=== PATIENT | female | born 1975 | race Native Hawaiian/Other Pacific Islander ===

== ENCOUNTER 2019-08-09 10:13 | Emergency (ER) | payer OTHER, MEDICAID, SELFPAY ==
[2019-08-09 10:15] VITALS: BP 140/77; PULSE 72; RESP 18; TEMP 37; O2SAT 100; BMI 38.9
--- NOTE | 2019-08-09 10:31 | ED_ITS ---
HPI - Chest Pain General Chief Complaint: Chest Pain Stated Complaint: Lower back and abdominal pain, chest pain Time Seen by Provider: 08/09/19 10:24 Source: patient Mode of arrival: Ambulatory Limitations: no limitations History of Present Illness HPI narrative: Patient is a 44-year-old female who presents with a variety of complaints. She states that 4 days ago she started having bilateral low back pain knee radiating down her legs. 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 She has been taking Tylenol without any relief. Last night the pain was quite pad. She also has some lower abdominal pain some dysuria. She denies any fevers nausea or vomiting. She did also have some intermittent chest pain now resolved this morning. She says that has gone away. Related Data Home Medications Medication Instructions Recorded Confirmed No Known Home Medications 08/09/19 08/09/19 Allergies Allergy/AdvReac Type Severity Reaction Status Date / Time No Known Drug Allergies Allergy Verified 08/09/19 10:30 Review of Systems Review of Systems ROS Unobtainable: All systems reviewed & are unremarkable except as noted in HPI and below Constitutional Constitutional: Denies chills, Denies fever(s), Denies lethargy and Denies weakness Cardiovascular Cardiovascular: Reports chest pain, Denies dyspnea and Denies dyspnea on exertion Respiratory Respiratory: Denies cough, Denies dyspnea, Denies dyspnea on exertion and Denies wheezing Gastrointestinal Gastrointestinal: Reports abdominal pain (lower mild), Denies diarrhea, Denies n ausea and Denies vomiting Genitourinary Genitourinary: Denies hematuria, Denies flank pain, Denies urinary incontinence and Denies urinary urgency Musculoskeletal Musculoskeletal: Reports as per HPI, Reports back pain, Denies muscle weakness, Denies numbness and Denies tingling Integumentary/Breasts Skin/Breast: Denies pruritus, Denies erythema, Denies rash and Denies wounds Neurologic Neurologic: Denies confusion, Denies numbness, Denies tingling and Denies weakness Psychiatric Psychiatric: Denies anxiety, Denies confusion, Denies depression, Denies homicidal ideation and Denies suicidal ideation Allergic/Immunologic Allergic/Immunologic: Denies wheezing Patient History Medical History Patient denies significant medical history (Acute) Social History Smoking Status: Current every day smoker Social History Smoking Status: Current every day smoker alcohol intake frequency: 0-2 drinks per day Substance Use Type: does not use Exam Initial Vital Signs Initial Vital Signs: Vital Signs Temperature 98.6 F 08/09/19 10:15 Pulse Rate 72 08/09/19 10:15 Respiratory Rate 18 08/09/19 10:15 Blood Pressure 140/77 08/09/19 10:15 Pulse Oximetry 100 08/09/19 10:15 GENERAL: Well-appearing, well-nourished and in no acute distress. HEENT: Head atraumatic,EOMI, pupils reactive, face symmetric CARDIOVASCULAR: Regular rate and rhythm without murmurs, rubs or gallops. RESPIRATORY: Breath sounds equal bilaterally, no wheezes rales or rhonchi. ABDOMEN: Soft, minimal suprapubic tenderness. Normoactive bowel sounds all 4 quadrants. No guarding or rebound. bACK: No vertebral tenderness lower bilateral lumbar pain. It to lift both legs off bed without reproducing low back pain sensation in lower extremities equal and intact : No CVA tenderness EXTREMITIES: Normal range of motion, no clubbing or edema. Neurovascularly intact NEUROLOGICAL: Alert and oriented x4.Normal gait and speech. Cranial nerves II through XII grossly intact. SKIN: Warm, dry, no laceration, no petechiae, no rashes or lesions. Scores HEART Score Heart Score history: Slightly Suspicious Heart Score EKG: Normal Heart Score Age: 45-64 years old Heart Score risk factors: No known risk factors Heart Score troponin: < or = to normal limit Heart Score Total: 1 Course Orders Ordered: ED Orders 08/09/19 10:34 EKG-12 Lead Stat 08/09/19 10:45 Complete Blood Count AUTO DIFF Stat Comprehensive Metabolic Panel Stat Lipase Stat Troponin & CK Cardiac Panel Stat 08/09/19 11:20 XR chest 1V Stat Discontinued Medications Ketorolac Tromethamine (Toradol) 30 mg IV NOW ONE Stop: 08/09/19 11:21 Last Admin: 08/09/19 11:36 Dose: 30 mg Documented by: SIENNA Vital Signs Vital signs: Vital Signs - 8 hr 08/09/19 10:15 08/09/19 11:30 08/09/19 13:14 Temperature 98.6 F Pulse Rate 72 65 61 Respiratory Rate 18 17 Blood Pressure 140/77 124/70 Blood Pressure [Right Arm] 129/77 Pulse Oximetry 100 98 100 MDM - Chest Pain Lab Data Attestation: I reviewed the patient's lab results. Result diagrams: 08/09/19 10:45 08/09/19 10:45 Labs: Lab Results 08/09/19 08/09/19 Range/Units 10:45 10:45 WBC 7.4 (4.5-11.0) X10^3/uL RBC 5.11 (4.0-5.2) X10^6/uL Hgb 13.3 (12.0-16.0) g/dL Hct 39.9 (36-46) % MCV 78.2 L (80-100) fL MCH 26.1 (26-34) PG MCHC 33.3 (30-36) % RDW 15.8 H (11.6-14.8) % Plt Count 289 (150-400) X10^3/uL Neut % (Auto) 67.6 (50-75) % Lymph % (Auto) 21.7 L (25-40) % [place] % (Auto) 6.0 (3-14) % Eos % (Auto) 3.4 (2-4) % Baso % (Auto) 1.3 (0-2) % Neut # (Auto) 5000 (1310-0344) /uL Lymph # (Auto) 1600 (6117-3553) /uL [place] # (Auto) 400 (0-900) /uL Eos # (Auto) 200 (0-450) /uL Baso # (Auto) 100 (0-100) /uL Sodium 137 (137-145) mmol/L Potassium 4.4 (3.4-5.1) mmol/L Chloride 102 (98-107) mmol/L Carbon Dioxide 25 (22-32) mmol/L BUN 12 (7-17) mg/dL Creatinine 0.70 (0.52-1.04) mg/dL Estimated GFR > 60.0 (>60) mL/min BUN/Creatinine Ratio 17.1 (6-22) Glucose 129 H (70-100) mg/dL Calcium 9.6 (8.4-10.2) mg/dL Total Bilirubin 0.5 (0.2-1.3) mg/dL AST 33 (14-36) IU/L ALT < 6 L (9-52) IU/L Alkaline Phosphatase 51 (38-126) U/L Total Creatine Kinase 73 (30-135) U/L CK-MB (CK-2) TNP CK-MB (CK-2) Rel Index TNP Troponin I < 0.012 (0.01-0.034) ng/mL Total Protein 7.8 (6.3-8.2) g/dL Albumin 4.5 (3.5-5.0) g/dL Globulin 3.3 (1.7-4.1) g/dL Albumin/Globulin Ratio 1.4 (1.0-2.8) Lipase 38 (23-300) U/L Point of Care Testing Test Results Negative Urine Dip Bedside Urine Glucose Negative Bedside Urine Bilirubin - Negative Bedside Urine Ketone - Negative Urine Specific Zachary 1.010 Bedside Urine Occult Blood - Negative Bedside Urine pH 6.0 Bedside Urine Protein - Negative Bedside Urine Urobilinogen - Negative Bedside Urine Nitrite - Negative Bedside Urine Leukocytes - Negative Esterase Imaging Data Chest x-ray: Radiologist's impression: PROCEDURE: XR CHEST 1V INDICATIONS: chest pain TECHNIQUE: One view of the chest was acquired. COMPARISON: None. FINDINGS: Surgical changes and devices: None. Lungs and pleura: Lungs are clear. No pleural effusions or pneumothorax. Mediastinum: Mediastinal contours appear normal. Heart size is normal. Bones and chest wall: No suspicious bony lesions. Overlying soft tissues a ppear unremarkable. IMPRESSION: No acute cardiopulmonary disease process. Dictated by: Catia Bradshaw MD, PhD on 08/09/2019 at 11:02 ECG Data Attestation: I personally reviewed and interpreted this ECG as follows: Prior ECG tracings: not available for review Interpretation: Normal sinus rhythm rate 66 p.r. interval 163 QRS [address] changes no T-wave inversions no prior to compare MDM Narrative Medical decision making narrative: Patient overall is feeling much better after Toradol. She is ambulatory to the restroom without any difficulty she does not have any signs of UTI. EKG and blood work were overall reassuring. Biggest complaint today seems to be back pain. Discharge Plan Departure Patient Disposition: Home Clinical Impression: Back pain Qualifiers: Back pain location: low back pain Chronicity: acute Back pain laterality: bilateral Sciatica presence: without sciatica Qualified Code(s): M54.5 - Low back pain Discharge Date/Time: 08/09/19 13:15 Instructions: DI for Low Back Pain Activity Restrictions/Additional Instructions: *You have been diagnosed with back pain *What to do: A light stretching is encouraged, increase activity as tolerated. *Continue to take medications as directed Ibuprofen 800 mg every 8 hours if needed for pain Tylenol 650 mg every 4-6 hours if needed for pain *Follow up with your primary care provider in 2-3 days *Return to ER if you should have increasing back pain, leg weakness, or any new, worsening or concerning symptoms Prescriptions: No Action No Known Home Medications RF: 0 Referrals: [facility] [Outside] Stand Alone Forms: Work Release Note
--- NOTE | 2019-08-09 11:20 | DI.RAD.S_ITS ---
PROCEDURE: XR CHEST 1V INDICATIONS: chest pain TECHNIQUE: One view of the chest was acquired. COMPARISON: None. FINDINGS: Surgical changes and devices: None. Lungs and pleura: Lungs are clear. No pleural effusions or pneumothorax. Mediastinum: Mediastinal contours appear normal. Heart size is normal. Bones and chest wall: No suspicious bony lesions. Overlying soft tissues appear unremarkable. IMPRESSION: No acute cardiopulmonary disease process. Dictated by: Catia Bradshaw MD, PhD on 08/09/2019 at 11:02 Approved by: Catia Bradshaw MD, PhD on 08/09/2019 at 11:02
[2019-08-09 11:29] LABS: Add Manual Diff / Slide Review NO; Basophils Absolute Auto 100 /uL (0-100); Basophils Percent Auto 1.3 % (0-2); Eosinophils Absolute Auto 200 /uL (0-450); Eosinophils Percent Auto 3.4 % (2-4); Hematocrit 39.9 % (36-46); Hemoglobin 13.3 g/dL (12.0-16.0); Lymphocytes Absolute Auto 1600 /uL (1100-4500); Lymphocytes Percent Auto 21.7 % (25-40); Mean Corpuscular HGB Conc 33.3 % (30-36); Mean Corpuscular Hemoglobin 26.1 PG (26-34); Mean Corpuscular Volume 78.2 fL (80-100); Monocytes Absolute Auto 400 /uL (0-900); Neutrophils Absolute Auto 5000 /uL (1500-7000); Neutrophils Percent Auto 67.6 % (50-75); Platelet Count 289 X10^3/uL (150-400); Red Blood Cell Count 5.11 X10^6/uL (4.0-5.2); Red Cell Distribution Width 15.8 % (11.6-14.8); White Blood Cell Count 7.4 X10^3/uL (4.5-11.0)
[2019-08-09 11:30] VITALS: BP 129/77; PULSE 65; RESP 17; O2SAT 98
[2019-08-09 11:34] LABS: Albumin 4.5 g/dL (3.5-5.0); Albumin Globulin Ratio 1.4 (1.0-2.8); Alkaline Phosphatase 51 U/L (38-126); Aspartate Aminotransferase 33 IU/L (14-36); BUN Creatinine Ratio 17.1 (6-22); Bilirubin Total 0.5 mg/dL (0.2-1.3); Blood Urea Nitrogen 12 mg/dL (7-17); Calcium 9.6 mg/dL (8.4-10.2); Carbon Dioxide 25 mmol/L (22-32); Chloride 102 mmol/L (98-107); Creatine Kinase 73 U/L (30-135); Estimated Glomerular Filt Rate > 60.0 mL/min (>60); Globulin 3.3 g/dL (1.7-4.1); Glucose 129 mg/dL (70-100); Lipase 38 U/L (23-300); Potassium 4.4 mmol/L (3.4-5.1); Sodium 137 mmol/L (137-145); Total Protein 7.8 g/dL (6.3-8.2)
[2019-08-09 11:35] LABS: Alanine Aminotransferase < 6 IU/L (9-52); HEMOLYSIS 60 (0-50)
[2019-08-09] MEDS: KETOROLAC 60 MG/2 ML VIAL 30 MG IV (11:36)
[2019-08-09 11:45] LABS: Troponin I < 0.012 ng/mL (0.01-0.034)
[2019-08-09 13:14] VITALS: BP 124/70; PULSE 61; O2SAT 100
== END 2019-08-09 13:15 | disposition home or self-care (01) ==
PROVIDERS: Emergency Provider Emergency Medicine
DX: M54.9 Dorsalgia, unspecified (principal)
CPT/HCPCS: 36415; 71045; 80053; 81003; 81025; 82550; 83690; 84484; 85025; 93005; 93041; 96374; 99283; 99285; J1885

== ENCOUNTER 2025-03-08 15:51 | Emergency (ER) | payer OTHER, SELFPAY ==
[2025-03-08 15:58] VITALS: PULSE 75; O2SAT 98
[2025-03-08 15:59] VITALS: BP 116/56; PULSE 79; RESP 17; TEMP 36.1; O2SAT 98; BMI 43.7
[2025-03-08 16:00] VITALS: BP 108/59; PULSE 71; RESP 16; O2SAT 95
--- NOTE | 2025-03-08 16:01 | DI.RAD.S_ITS ---
PROCEDURE: XR CHEST 1V INDICATIONS: Chest Pain TECHNIQUE: One view of the chest was acquired. COMPARISON: [facility], CR, XR CHEST 1V, 08/09/2019, 11:33. Merged With [facility], CR, XR CHEST 1 VIEW, 11/01/2024, 8:21. FINDINGS: Surgical changes and devices: None. Lungs and pleura: On this semiupright portable chest examination, no large pneumothorax or large pleural effusions are seen. No focal infiltrates are seen. Low lung volumes are noted. This causes a crowded appearance to the lung markings and limits evaluation. Mediastinum: Mediastinal contours appear normal. Heart size is normal. Bones and chest wall: No suspicious bony lesions. Overlying soft tissues appear unremarkable. IMPRESSION: Limited portable chest examination, without a significant cardiopulmonary abnormality identified. Dictated by: Gennaro Norman M.D. on 03/08/2025 at 15:40 Approved by: Gennaro Norman M.D. on 03/08/2025 at 15:41
--- NOTE | 2025-03-08 16:02 | ED_ITS ---
HPI - General Adult General Chief complaint: Dizziness Stated complaint: numbness, sweaty, DA SILVA, nausea Time Seen by Provider: 03/08/25 16:01 Source: patient, RN notes reviewed and old records reviewed Mode of arrival: Ambulatory Limitations: no limitations History of Present Illness HPI narrative: 50-year-old female history of hypertension, GERD, neuropathy chronic wounds on bilateral feet who presents with complaint of headache that came on fairly abruptly earlier today about 2 hours prior to arrival. Patient states it has improved although still present. She said she was felt sweaty sort of nauseated and felt numb down in both legs. She states no syncope. No fevers or chills. No chest pain, no shortness of breath. She had nausea but no vomiting. Denies any loss of bowel or bladder control. Does note she was had some diarrhea that is been mild last several days. Denies any urinary symptoms. Patient states no weakness numbness or tingling that is new in her extremities at this time. She states she was able to ambulate the entire time.. She states she was sort of felt cold all over. Patient states she does not normally get headaches. She did not take her usual Tylenol today. She did take oral pain medication she was unsure if it is a narcotic or something such as Neurontin but states her daughters told her it makes her kind of weird she thinks that might have caused her symptoms. She states she takes medication for hypertension, omeprazole, cholesterol but no diabetes. She states no aspirin or thinners. She denies any prior surgeries. Denies any drug allergies. Does use tobacco, denies any alcohol or recreational drugs. Does have known wounds on her bilateral feet which are being monitored and she states has been healing well. She follows with Rita Conley for primary care. Related Data Home Medications Medication Instructions Recorded Confirmed No Known Home Medications 08/09/19 08/09/19 Allergies Allergy/AdvReac Type Severity Reaction Status Date / Time No Known Drug Allergies Allergy Verified 03/08/25 15:59 Review of Systems Review of Systems ROS Unobtainable: All systems reviewed & are unremarkable except as noted in HPI and below Patient History Medical History (Updated 03/08/25 @ 17:16 by Elysia Carballo DO) Patient denies significant medical history Social History Smoking Status: Current every day smoker Smoking Status: Current every day smoker alcohol intake frequency: 0-2 drinks per day Exam Narrative Exam Narrative: GEN: well nourished, well appearing female, alert and oriented x 3, patient appears to be in mild distress. No diaphoresis. HEENT: Atraumatic, pupils are equal round reactive to light, extraocular movements are intact, no photophobia, nares are clear, TMs are clear with no fluid, there is no conjunctival pallor. Throat is clear without any exudates, erythema, tonsillar enlargement or uvular deviation, no facial droop. HEART: Regular rate and rhythm without murmur, clicks, rubs. Pulses are equal in upper and lower extremities LUNGS:Lungs clear to auscultation, no wheezes, rales, crackles, chest moves symmetrically ABD:bowel sounds normal, soft, non-tender, no guarding, rebound, rigidity, no masses noted, no hepatosplenomegaly :No CVA tenderness MSCL: Non-tender, no muscle atrophy, muscles strength 5/5 upper and lower extremities, full range of motion, normal gait NEURO:CN 2-12 intact, sensation normal, finger nose finger test normal, heel thomas test normal. SKIN: No rash, erythema, patient has wounds on the plantar side of both her feet, she several wounds ranging from dime to quarter size on her right foot over the ball and mid foot. They are clean dry and intact without any purulent drainage, no erythema or surrounding skin changes. On the left foot on the plantar side she has 2 small wounds anteriorly with a larger wound towards the heel these are also clean dry and intact with some scant serous drainage but no purulent drainage no foul odor no erythema. They are nontender to touch for the patient. Initial Vital Signs Initial Vital Signs: Vital Signs Pulse Rate 75 03/08/25 15:58 Pulse Oximetry 98 03/08/25 15:58 Course Orders Ordered: ED Orders 03/08/25 16:01 XR chest 1V Stat EKG-12 Lead Stat RT Consult Eval and Treat NOW 03/08/25 16:12 Complete Blood Count AUTO DIFF Stat Comprehensive Metabolic Panel Stat Lactate (Lactic Acid) Stat Lipase Stat Magnesium Stat NT-proBNP (BNP-Adult 18+) Stat PTT Partial Thromboplastin Jamel Stat Prothrombin Time INR Stat Troponin & CK Cardiac Panel Stat 03/08/25 16:17 CT angio head and neck Stat CT head/brain wo con Stat Discontinued Medications Acetaminophen (Acetaminophen 325 Mg Tablet) 975 mg PO NOW ONE Stop: 03/08/25 16:18 Last Admin: 03/08/25 16:23 Dose: 975 mg Documented By: BOBBI Aspirin (Aspirin 81 Mg Chew Tab) 324 mg PO NOW ONE Stop: 03/08/25 16:02 Sodium Chloride (Normal Saline 0.9%) 1,000 mls @ 1,000 mls/hr IV BOLUS ONE Stop: 03/08/25 17:16 Last Infusion: 03/08/25 17:33 Dose: Infused Documented By: Infusion: 03/08/25 16:49 Dose: 1,000 mls/hr Documented By: Infusion: 03/08/25 16:38 Dose: 0 mls/hr Documented By: Admin: 03/08/25 16:23 Dose: 1,000 mls/hr Documented By: BOBBI Vital Signs Vital signs: Vital Signs - 8 hr 03/08/25 15:58 03/08/25 15:59 03/08/25 16:00 Temperature 97.0 F L Pulse Rate 75 79 71 Respiratory Rate 17 Blood Pressure 116/56 L Pulse Oximetry 98 98 95 Oxygen Delivery Method Room Air 03/08/25 16:00 03/08/25 16:46 03/08/25 16:47 Temperature Pulse Rate 72 Respiratory Rate 16 Blood Pressure 108/59 L 97/61 Pulse Oximetry 97 Oxygen Delivery Method 03/08/25 16:47 03/08/25 17:00 03/08/25 17:00 Temperature Pulse Rate 72 69 Respiratory Rate 21 15 Blood Pressure 105/65 Pulse Oximetry 98 100 Oxygen Delivery Method Medical Decision Making Lab Data 03/08/25 16:12 03/08/25 16:12 Labs: Lab Results 03/08/25 Range/Units 16:12 WBC 13.3 H (4.5-11.0) X10^3/uL RBC 4.56 (4.0-5.2) X10^6/uL Hgb 13.0 (12.0-16.0) g/dL Hct 38.7 (36-46) % MCV 84.8 (80-100) fL MCH 28.4 (26-34) PG MCHC 33.5 (30-36) % RDW 14.4 (11.6-14.8) % Plt Count 351 (150-400) X10^3/uL Neut % (Auto) 66.3 (50-75) % Lymph % (Auto) 24.5 L (25-40) % [place] % (Auto) 5.4 (3-14) % Eos % (Auto) 3.0 (2-4) % Baso % (Auto) 0.8 (0-2) % Neut # (Auto) 8800 H (5795-8764) /uL Lymph # (Auto) 3200 (2045-6838) /uL [place] # (Auto) 700 (0-900) /uL Eos # (Auto) 400 (0-450) /uL Baso # (Auto) 100 (0-100) /uL PT 11.3 (9.4-12.5) SECONDS INR 1.0 (0.9-1.3) APTT 32 (25.1-36.5) SECONDS Sodium 135 L (137-145) mmol/L Potassium 3.7 (3.4-5.1) mmol/L Chloride 101 (98-107) mmol/L Carbon Dioxide 23 (22-32) mmol/L BUN 19 H (7-17) mg/dL Creatinine 1.21 H (0.52-1.04) mg/dL Estimated GFR 54 L (>60) mL/min BUN/Creatinine Ratio 15.7 (6-22) Glucose 177 H (70-99) mg/dL Lactate 1.8 (0.7-2.1) mmol/L Calcium 9.0 (8.4-10.2) mg/dL Magnesium 1.9 (1.6-2.3) mg/dL Total Bilirubin 0.3 (0.2-1.3) mg/dL AST 22 (14-36) IU/L ALT 25 (<35) IU/L Alkaline Phosphatase 70 (38-126) U/L Total Creatine Kinase 44 (30-135) U/L Troponin I < 0.012 (0.01-0.034) ng/mL NT-Pro-B Natriuret Pep < 20 (<125) pg/mL Total Protein 7.1 (6.3-8.2) g/dL Albumin 4.3 (3.5-5.0) g/dL Globulin 2.8 (1.7-4.1) g/dL Albumin/Globulin Ratio 1.5 (1.0-2.8) Lipase 50 (23-300) U/L Point of Care Testing Glucose POC 166 Point of care testing: Point of Care Testing Glucose POC 166 ECG Data Attestation: I personally reviewed and interpreted this ECG as follows: Prior ECG tracings: available for review Interpretation: Sinus rhythm rate of 69 CO 178 QRS of 94 QTC of [address] elevation depression appreciated. Patient has prior from 08/09/2019 which appears similar. MDM Narrative Medical decision making narrative: EKG shows sinus rhythm Chest x-ray shows no acute change. Head CT shows no acute intracranial hemorrhage, no other acute intracranial pathology. CT head and neck angio shows no significant intracranial arterial abnormality, no darlene aneurysm, no significant abnormalities in the arteries of the neck. Labs white count of 13 hemoglobin of 13 platelets of 351, coags are negative. Chemistry shows sodium 135 BUN 18 creatinine 1.21 glucose of 177, potassium, chloride CO2 were normal range, lactate 1.8 LFTs are negative troponins less than 0.012 with a BNP of less than 20. 50 old nontoxic, well-appearing female female comes in with complaint of headache fairly abrupt onset, states it is significantly improved but felt sweaty nauseated tingling down both legs no acute neurologic changes otherwise her neuro exam here today is normal. She was a bit hypotensive on repeat vitals after arrival. She does take blood pressure medication she notes she did not take her usual Tylenol and did take a pain medication unclear if it was narcotic or not earlier today for chronic leg pain. Point of care glucose was 166. Patient had acetaminophen deferred anything stronger, and fluids. On rechecked patient states she still has a mild headache but continues to feel improved. Reviewed her findings from today she was unsure of her prior creatinine or if this is an elevation or her baseline. She feels comfortable returning home. We will give a copy of her labs to follow up with primary care. Patient Discharge Plan Departure Patient Disposition: Home Clinical Impression: Headache, Elevated serum creatinine Instructions: DI for Headache Activity Restrictions/Additional Instructions: Follow up for recheck, your creatinine today is elevated last labs I have for comparison or from 6 years ago please touch base with your physician make sure this is your normal baseline and does not need to be rechecked. Your creatinine is 1.21 today. You can continue your home medications as prescribed. Please return if you have recurrent severe headaches, sudden vision changes, passing out, vomiting, new numbness tingling or weakness, difficulty with movement, changes to speech or other new or concerning changes. Prescriptions: No Action No Known Home Medications Referrals: Rita Conley ARNP [Primary Care Provider] - Stand Alone Forms: Patient Portal/API/Survey
--- NOTE | 2025-03-08 16:08 | EKG_ITS ---
[address] [address] Test Date: 2025-03-08 Pat Name: Alisa Gipson Department: [facility] Room: Gender: Female Sales Person: LITZY : 1975 Requested By: Order Number: [id number] Reading MD: Sid Wolf MD Measurements Intervals [place] Rate: 69 P: 62 OK: 178 QRS: 51 QRSD: 94 T: 57 QT: 442 QTc: 473 Interpretive Statements Normal sinus rhythm Electronically Signed On 03-09-2025 8:12:57 PDT by Sid Wolf MD
--- NOTE | 2025-03-08 16:17 | DI.CT.S_ITS ---
PROCEDURE: CT HEAD/BRAIN WO CON INDICATIONS: Deal, sudden onset, better now but was bad earlier TECHNIQUE: Noncontrast 4.5 mm thick angled axial sections acquired from the foramen magnum to the vertex, with coronal and sagittal reformats. For radiation dose reduction, the following was used: automated exposure control, adjustment of mA and/or kV according to patient size. COMPARISON: [facility], CR, XR CHEST 1V, 03/08/2025, 16:06. [facility], CT, CT ANGIO HEAD AND NECK, 03/08/2025, 16:31. FINDINGS: Image quality: Diagnostic. CSF spaces: Basal cisterns are patent. No extra-axial fluid collections. Ventricles are normal in size and shape. Brain: No midline shift. No intracranial mass effect or hemorrhage. Kirby-white matter interface is normal. Skull and face: Calvarium and visualized facial bones are intact, without suspicious lesions. Sinuses: Visualized sinuses and mastoids are clear. IMPRESSION: No acute intracranial hemorrhage is seen. No acute intracranial pathology. Dictated by: Gennaro Norman M.D. on 03/08/2025 at 16:08 Approved by: Gennaro Norman M.D. on 03/08/2025 at 16:09
--- NOTE | 2025-03-08 16:17 | DI.CT.S_ITS ---
PROCEDURE: CT ANGIO HEAD AND NECK INDICATIONS: Deal, sudden onset, better now but was bad earlier TECHNIQUE: After the administration of intravenous contrast, 1 mm thick sections acquired from the aortic arch through the [place] of [place]. 3-dimensional fdzvmaz-nvvlmubxl-pqvilaiivo (MIP) and/or volume rendering reformats were acquired of the central intracranial vasculature and neck separately. For radiation dose reduction, the following was used: automated exposure control, adjustment of mA and/or kV according to patient size. COMPARISON: [facility], CR, XR CHEST 1V, 03/08/2025, 16:06. [facility], CT, CT HEAD/BRAIN WO CON, 03/08/2025, 16:31. FINDINGS: Image quality: Limited by bolus timing, with venous contamination. Streak artifact is reduced by metal reconstruction algorithm. BRAIN: CSF spaces: Ventricles are normal in size and shape. Basal cisterns are patent. No extra-axial fluid collections. Brain: No significant abnormality of the brain can be seen. Skull and face: Calvarium and facial bones appear intact, without suspicious lesions. Orbits appear normal. Sinuses: Sinuses and mastoids are clear. HEAD CT ANGIOGRAPHY: Anterior circulation: Intracranial internal carotid arteries are normal in size and flow. The flow within the paired anterior cerebral arteries is normal and symmetric. The flow within the middle cerebral arteries is normal and symmetric. The anterior communicating artery is seen. No aneurysms are seen. Posterior circulation: Visualized portions of the vertebral arteries demonstrate normal caliber, and join to form a normal appearing basilar artery. Flow within the posterior cerebral arteries is normal and symmetric. No aneurysms are seen. NECK CT ANGIOGRAPHY: Carotid system: The great vessels demonstrate a conventional anatomy as they arise from the aortic arch. The origins of the common carotid arteries appear patent. The common carotid arteries demonstrate normal caliber and courses. The bifurcation regions are both widely patent. The internal carotid arteries demonstrate normal calibers and courses. Posterior circulation: The origins of the vertebral arteries both appear widely patent. The more superior extracranial portions of both vertebral arteries also demonstrate normal courses and calibers. They join to form a normal appearing basilar artery. Soft tissues: Visualized neck soft tissues demonstrate no suspicious abnormalities. Bones: No suspicious bony lesions. Visualized cervical spine appears normally aligned. Mild lower cervical spine degenerative change can be seen. IMPRESSION: No significant intracranial arterial abnormality is seen. No darlene aneurysm is identified. No significant abnormality is seen within the arteries of the neck. Any quantitative measurements of stenosis were performed using NASCET criteria. Dictated by: Gennaro Norman M.D. on 03/08/2025 at 16:09 Approved by: Gennaro Norman M.D. on 03/08/2025 at 16:11
[2025-03-08] MEDS: SODIUM CHLORIDE 0.9% 1,000 ML 1000 ML IV (16:23)
[2025-03-08] MEDS: ACETAMINOPHEN 325 MG TABLET 975 MG PO (16:23)
[2025-03-08 16:25] LABS: Add Manual Diff / Slide Review NO; Basophils Absolute Auto 100 /uL (0-100); Basophils Percent Auto 0.8 % (0-2); Eosinophils Absolute Auto 400 /uL (0-450); Hematocrit 38.7 % (36-46); Lymphocytes Absolute Auto 3200 /uL (1100-4500); Lymphocytes Percent Auto 24.5 % (25-40); Mean Corpuscular HGB Conc 33.5 % (30-36); Mean Corpuscular Hemoglobin 28.4 PG (26-34); Mean Corpuscular Volume 84.8 fL (80-100); Monocytes Absolute Auto 700 /uL (0-900); Monocytes Percent Auto 5.4 % (3-14); Neutrophils Absolute Auto 8800 /uL (1500-7000); Neutrophils Percent Auto 66.3 % (50-75); Platelet Count 351 X10^3/uL (150-400); Red Blood Cell Count 4.56 X10^6/uL (4.0-5.2); Red Cell Distribution Width 14.4 % (11.6-14.8); White Blood Cell Count 13.3 X10^3/uL (4.5-11.0)
[2025-03-08 16:30] LABS: Prothrombin Time 11.3 SECONDS (9.4-12.5)
[2025-03-08 16:32] LABS: PTT Partial Thromboplastin Tim 32 SECONDS (25.1-36.5)
[2025-03-08 16:44] LABS: Lactate (Lactic Acid) 1.8 mmol/L (0.7-2.1)
[2025-03-08 16:46] VITALS: PULSE 72; O2SAT 97
[2025-03-08 16:46] LABS: Alanine Aminotransferase 25 IU/L (<35); Albumin 4.3 g/dL (3.5-5.0); Albumin Globulin Ratio 1.5 (1.0-2.8); Alkaline Phosphatase 70 U/L (38-126); Aspartate Aminotransferase 22 IU/L (14-36); BUN Creatinine Ratio 15.7 (6-22); Bilirubin Total 0.3 mg/dL (0.2-1.3); Blood Urea Nitrogen 19 mg/dL (7-17); Carbon Dioxide 23 mmol/L (22-32); Chloride 101 mmol/L (98-107); Creatine Kinase 44 U/L (30-135); Estimated Glomerular Filt Rate 54 mL/min (>60); Globulin 2.8 g/dL (1.7-4.1); Glucose 177 mg/dL (70-99); HEMOLYSIS < 15 (0-50); Lipase 50 U/L (23-300); Magnesium 1.9 mg/dL (1.6-2.3); Potassium 3.7 mmol/L (3.4-5.1); Sodium 135 mmol/L (137-145); Total Protein 7.1 g/dL (6.3-8.2)
[2025-03-08 16:47] VITALS: BP 97/61; PULSE 72; RESP 21; O2SAT 98
[2025-03-08 16:57] LABS: NT-proBNP (BNP-Adult 18+) < 20 pg/mL (<125); Troponin I < 0.012 ng/mL (0.01-0.034)
[2025-03-08 17:00] VITALS: BP 105/65; PULSE 69; RESP 15; O2SAT 100
== END 2025-03-08 17:34 | disposition home or self-care (01) ==
PROVIDERS: Emergency Provider Emergency Medicine; PCP Nurse Practitioner
DX: R51.9 Headache, unspecified (principal); R20.0 Anesthesia of skin; R11.0 Nausea; R79.89 Other specified abnormal findings of blood chemistry
CPT/HCPCS: 70450; 70496; 70498; 71045; 80053; 82550; 82962; 83605; 83690; 83735; 83880; 84484; 85025; 85610; 85730; 93005; 96360; 99284; Q9967

== ENCOUNTER 2025-09-11 15:27 | Emergency (ER) | payer OTHER, SELFPAY ==
[2025-09-11] VITALS (8 sets, daily range): BP systolic 87–141; BP diastolic 52–64; PULSE 77–97; RESP 14–20; TEMP 36.5; O2SAT 94–100; BMI 38.2
--- NOTE | 2025-09-11 15:33 | DI.RAD.S_ITS ---
PROCEDURE: XR CHEST 1V INDICATIONS: Chest Pain TECHNIQUE: One view of the chest was acquired. COMPARISON: [facility], CR, XR CHEST 1 VIEW, 11/01/2024, 8:21. [facility], CR, XR CHEST 1V, 03/08/2025, 16:06. FINDINGS: Surgical changes and devices: None. Lungs and pleura: Lungs are clear. No pleural effusions or pneumothorax. Mediastinum: Mediastinal contours appear normal. Heart size is normal. Bones and chest wall: No suspicious bony lesions. Overlying soft tissues appear unremarkable. IMPRESSION: No acute cardiopulmonary abnormality is seen. Dictated by: Gennaro Norman M.D. on 09/11/2025 at 15:26 Approved by: Gennaro Norman M.D. on 09/11/2025 at 15:27
--- NOTE | 2025-09-11 15:33 | EKG_ITS ---
[address] [address] Test Date: 2025-09-11 Pat Name: Alisa Gipson Department: [facility] Room: Gender: Female [employer]crete [employer]: JOHN : 1975 Requested By: Order Number: [id number] Reading MD: Sid Wolf MD Measurements Intervals [place] Rate: 92 P: 65 CA: 170 QRS: 40 QRSD: 84 T: 59 QT: 372 QTc: 460 Interpretive Statements Normal sinus rhythm Electronically Signed On 09-11-2025 16:34:36 PST by Sid Wolf MD
[2025-09-11] MEDS: ASPIRIN 81 MG CHEW TAB 324 MG PO (15:38)
[2025-09-11 16:21] LABS: Add Manual Diff / Slide Review NO; Hematocrit 38.8 % (36-46); Hemoglobin 13.4 g/dL (12.0-16.0); Lymphocytes Absolute Auto 2800 /uL (1100-4500); Mean Corpuscular HGB Conc 34.4 % (30-36); Mean Corpuscular Hemoglobin 29.2 PG (26-34); Mean Corpuscular Volume 84.9 fL (80-100); Platelet Count 381 X10^3/uL (150-400)
[2025-09-11 16:27] LABS: INR 1.0 (0.9-1.3); Prothrombin Time 11.2 SECONDS (9.4-12.5)
[2025-09-11 16:29] LABS: PTT Partial Thromboplastin Tim 32 SECONDS (25.1-36.5)
[2025-09-11 16:34] LABS: Alanine Aminotransferase 22 IU/L (<35); Albumin 4.5 g/dL (3.5-5.0); Albumin Globulin Ratio 1.6 (1.0-2.8); Alkaline Phosphatase 60 U/L (38-126); Blood Urea Nitrogen 25 mg/dL (7-17); Calcium 9.3 mg/dL (8.4-10.2); Carbon Dioxide 26 mmol/L (22-32); Chloride 104 mmol/L (98-107); Creatine Kinase 88 U/L (30-135); Estimated Glomerular Filt Rate 55 mL/min (>60); Globulin 2.8 g/dL (1.7-4.1); Glucose 112 mg/dL (70-99); HEMOLYSIS < 15 (0-50); Lipase 65 U/L (23-300); Magnesium 2.2 mg/dL (1.6-2.3); Potassium 3.9 mmol/L (3.4-5.1); Sodium 140 mmol/L (137-145); Total Protein 7.3 g/dL (6.3-8.2)
[2025-09-11 16:44] LABS: NT-proBNP (BNP-Adult 18+) < 20 pg/mL (<125); Troponin I < 0.012 ng/mL (0.01-0.034)
--- NOTE | 2025-09-11 18:28 | PC.NURSE ---
pt having chest pain radiating into her neck and jaw constantly
[2025-09-11 18:39] LABS: Troponin I < 0.012 ng/mL (0.01-0.034)
--- NOTE | 2025-09-11 18:56 | ED.CHESTPAIN ---
HPI - Chest Pain General Chief Complaint: Chest Pain Stated Complaint: Fast HR, chest tightness, bottom jaw hurting Time Seen by Provider: 09/11/25 15:35 Source: patient Mode of arrival: Ambulatory Limitations: no limitations History of Present Illness HPI narrative: 50-year-old female with no pertinent past medical history comes into the ED from home for evaluation of palpitations, tachycardia, chest tightness, jaw pain, states that this started earlier today felt some dizziness secondary to these symptoms, at time of evaluation patient without any active chest pain, denies any symptoms such as headache visual disturbance shortness breath fever chills nausea vomiting abdominal pain or any other GI/ symptoms time. Related Data Home Medications ?Medication ?Instructions ?Recorded ?Confirmed No Known Home Medications 08/09/19 08/09/19 Allergies Allergy/AdvReac Type Severity Reaction Status Date / Time No Known Drug Allergies Allergy Verified 09/11/25 15:49 Review of Systems Review of Systems Narrative: General: Denies fever, chills, weight loss HEENT: Positive jaw pain, Denies headache, eye drainage, eye irritation, head trauma, sore throat, voice change Cardiovascular: Positive chest pain, palpitations, tachycardia Respiratory: Denies any shortness of breath, cough, wheeze, stridor GI/: Denies any abdominal pain, nausea, vomiting, diarrhea, bright red blood per rectum, melanotic stools, urinary frequency, urinary retention, dysuria, hematuria MSK: Denies any joint pain, muscle pains, swelling Skin: Denies any rashes, lesions, discoloration Neuro: Denies any headache, lightheadedness, dizziness, fainting, weakness Psych: Denies SI/HI Patient History Medical History (Updated 09/11/25 @ 19:03 by Girma Mensah DO) Patient denies significant medical history Social History Smoking Status: Unknown if ever smoked Smoking Status: Unknown if ever smoked alcohol intake frequency: 0-2 drinks per day Exam Narrative Exam Narrative: General: Cooperative, well-developed, not in acute distress HEENT: Normocephalic, atraumatic, PERRLA, normal sclera, eyelids normal Neck: Active full range of motion, atraumatic Chest: Normal to inspection, negative crepitus, no overlying erythema ecchymosis Respiratory: Normal respiratory effort, not in acute respiratory distress, clear to auscultation bilaterally negative cough, wheeze, tachypnea, rhonchi, rales Cardiology: Regular rate rhythm negative gallop, murmur, rubs GI/: No tenderness to palpation, soft, non rigid, normal to inspection, exam deferred MSK: Full active range of motion in all 4 extremities, atraumatic, no tenderness to palpation of any bony prominences Skin: No rashes or lesions noted Neuro: Alert awake oriented x3, moves all 4 extremities spontaneously, cranial nerves intact, able to answer all questions appropriately follows commands appropriately Psych: Cooperative, negative suicidal or homicidal ideations Initial Vital Signs Initial Vital Signs: Vital Signs Temperature 97.7 F 09/11/25 15:40 Pulse Rate 97 H 09/11/25 15:40 Respiratory Rate 14 09/11/25 15:40 Blood Pressure 141/60 H 09/11/25 15:40 Pulse Oximetry 96 09/11/25 15:40 Oxygen Delivery Method Room Air 09/11/25 15:40 Course Orders Ordered: ED Orders 09/11/25 15:33 XR chest 1V Stat EKG-12 Lead Stat 09/11/25 16:00 Complete Blood Count AUTO DIFF Stat Comprehensive Metabolic Panel Stat Lipase Stat Magnesium Stat NT-proBNP (BNP-Adult 18+) Stat PTT Partial Thromboplastin Jamel Stat Prothrombin Time INR Stat Troponin & CK Cardiac Panel Stat 09/11/25 18:00 Trop I [Troponin I] Stat Discontinued Medications Aspirin (Aspirin 81 Mg Chew Tab) 324 mg PO NOW ONE Stop: 09/11/25 15:34 Last Admin: 09/11/25 15:38 Dose: 324 mg Documented By: LATASHA Vital Signs Vital signs: Vital Signs - 8 hr 09/11/25 15:40 09/11/25 16:42 09/11/25 16:42 Temperature 97.7 F Pulse Rate 97 H 87 Respiratory Rate 14 Blood Pressure 141/60 H 131/60 Pulse Oximetry 96 100 Oxygen Delivery Method Room Air 09/11/25 17:00 09/11/25 17:00 09/11/25 17:30 Temperature Pulse Rate 86 77 Respiratory Rate Blood Pressure 119/64 Pulse Oximetry 95 96 Oxygen Delivery Method 09/11/25 17:31 09/11/25 17:31 09/11/25 17:32 Temperature Pulse Rate 81 Respiratory Rate Blood Pressure 87/54 L 92/55 L Pulse Oximetry 96 Oxygen Delivery Method 09/11/25 17:32 09/11/25 18:00 09/11/25 18:00 Temperature Pulse Rate 85 85 Respiratory Rate 20 Blood Pressure 91/52 L Pulse Oximetry 97 94 Oxygen Delivery Method 09/11/25 18:30 09/11/25 18:30 Temperature Pulse Rate 77 Respiratory Rate 17 Blood Pressure 97/58 L Pulse Oximetry 95 Oxygen Delivery Method MDM - Chest Pain Lab Data 09/11/25 16:00 09/11/25 16:00 Labs: Lab Results 09/11/25 09/11/25 Range/Units 16:00 18:00 WBC 10.7 (4.5-11.0) X10^3/uL RBC 4.57 (4.0-5.2) X10^6/uL Hgb 13.4 (12.0-16.0) g/dL Hct 38.8 (36-46) % MCV 84.9 (80-100) fL MCH 29.2 (26-34) PG MCHC 34.4 (30-36) % RDW 14.7 (11.6-14.8) % Plt Count 381 (150-400) X10^3/uL Neut % (Auto) 62.7 (50-75) % Lymph % (Auto) 25.9 (25-40) % [place] % (Auto) 7.6 (3-14) % Eos % (Auto) 2.9 (2-4) % Baso % (Auto) 0.9 (0-2) % Neut # (Auto) 6700 (3954-9634) /uL Lymph # (Auto) 2800 (5171-1672) /uL [place] # (Auto) 800 (0-900) /uL Eos # (Auto) 300 (0-450) /uL Baso # (Auto) 100 (0-100) /uL PT 11.2 (9.4-12.5) SECONDS INR 1.0 (0.9-1.3) APTT 32 (25.1-36.5) SECONDS Sodium 140 (137-145) mmol/L Potassium 3.9 (3.4-5.1) mmol/L Chloride 104 (98-107) mmol/L Carbon Dioxide 26 (22-32) mmol/L BUN 25 H (7-17) mg/dL Creatinine 1.19 H (0.52-1.04) mg/dL Estimated GFR 55 L (>60) mL/min BUN/Creatinine Ratio 21.0 (6-22) Glucose 112 H (70-99) mg/dL Calcium 9.3 (8.4-10.2) mg/dL Magnesium 2.2 (1.6-2.3) mg/dL Total Bilirubin 0.2 (0.2-1.3) mg/dL AST 22 (14-36) IU/L ALT 22 (<35) IU/L Alkaline Phosphatase 60 (38-126) U/L Total Creatine Kinase 88 (30-135) U/L Troponin I < 0.012 < 0.012 (0.01-0.034) ng/mL NT-Pro-B Natriuret Pep < 20 (<125) pg/mL Total Protein 7.3 (6.3-8.2) g/dL Albumin 4.5 (3.5-5.0) g/dL Globulin 2.8 (1.7-4.1) g/dL Albumin/Globulin Ratio 1.6 (1.0-2.8) Lipase 65 (23-300) U/L ECG Data Interpretation: EKG interpreted ED physician sinus 92 beats per minute QRS 460, QRS MS interval within normal limits, no STEMI MDM Narrative Medical decision making narrative: Patient is a 50-year-old female without any pertinent past medical history comes into the ED from home for evaluation of chest tightness jaw pain palpitations ongoing persistent since earlier today, patient with no active chest pain at time of my evaluation, EKG nonischemic, lab work was unremarkable, no leukocytosis, no electrolyte derangement, troponin negative x2 chest x-ray without any acute cardiopulmonary abnormality, patient with a heart score of 1. Patient will be discharged home with primary care and Cardiology he outpatient setting. Patient verbalized understanding of this and agrees to being discharged home with outpatient follow up Discharge Plan Departure Patient Disposition: Home Clinical Impression: Chest pain Instructions: DI for Chest Pain Activity Restrictions/Additional Instructions: Please follow up with Cardiology and your primary care doctor Please read the discharge instructions sheet carefully and bring all papers to all doctor follow-up visits, as it may contain information that your doctor may want to see. Disease processes change and evolve, if your symptoms worsen or if you develop any new symptoms that are concerning to you please return for evaluation. Your evaluation today does not show any evidence of any life-threatening/serious illnesses requiring admission to the hospital or surgery. Please follow-up with your doctor for re-evaluation in approximately 1 day. Seek immediate medical attention for any worrisome symptoms. *If you do not have a primary care provider please contact the [facility] Resource line at [phone]. They will ask some questions about your medical history and help get you set up with a doctor in the community. Prescriptions: No Action No Known Home Medications Referrals: Bernard Daniel MD [Physician, Cardiology] Rita Conley ARNP [Primary Care Provider, Nursing] Stand Alone Forms: Patient Portal/API
== END 2025-09-11 19:18 | disposition home or self-care (01) ==
PROVIDERS: Emergency Medicine; Emergency Provider Student in an Organized Health Care Education/Training Program; PCP Nurse Practitioner
DX: R07.9 Chest pain, unspecified (principal); R00.2 Palpitations; R68.84 Jaw pain
CPT/HCPCS: 36415; 71045; 80053; 82550; 83690; 83735; 83880; 84484; 85025; 85610; 85730; 93005; 93010; 99284